=== PATIENT | male | born 1960 | race Caucasian/White ===

== ENCOUNTER 2016-10-03 09:30 | Emergency (ER) | payer OTHER ==
[2016-09-05 21:54] VITALS: BMI 32.8
[~2016-10-03 09:30] MED LIST: ALPHA LIPOIC ACID PO; BEPREVE10 ML EACH EYE; COZAAR100 MG PO; CYMBALTA30 MG; CYMBALTA30 MG PO; EFFIENT10 MG PO; MOBIC7.5 MG PO; NEURONTIN 300300 MG PO; NORVASC5 MG PO; PLAVIX75 MG PO; SIMBRINZA 1%-0.28 ML EACH EYE; TANZEUM50 MG/0.5 SC; VITAMIN B COMPL1 TAB PO; VITAMIN D5000 UNIT PO; [UNRECOGNIZED DRUG - OTHER] PO
[2016-10-03 10:17] LABS: BASOPHILS 0.9 % (0.0-2.0); EOSINOPHILS 2.3 % (0-7); HEMATOCRIT 49.7 % (42.0-54.0); IMMATURE GRANULOCYTES 0.2 % (0-5); LYMPHOCYTES 25.6 % (15-50); MCHC 34.2 g/dL (31.0-37.0); MCV 87.8 fL (80.0-100.0); MEAN PLATELET VOLUME 10.3 fL (7.4-10.4); MONOCYTES 5.6 % (2-11); NEUTROPHILS 65.4 % (40-80); PLATELET COUNT 228 10x3/uL (130-400); RBC 5.66 10x6/uL (4.20-6.10); RDW 12.8 % (11.5-14.5); WBC 8.2 10x3/uL (4.8-10.8)
[2016-10-03 10:40] LABS: ALBUMIN 4.2 g/dL (3.4-5.0); ALKALINE PHOSPHATASE 105 U/L (46-116); ALT (SGPT) 44 U/L (10-68); BILIRUBIN - TOTAL 0.65 mg/dL (0.2-1.3); CALC OSMOLALITY 281 mosm/kg (275-300); CALCIUM 9.1 mg/dL (8.5-10.1); CHLORIDE - SERUM 99 mmol/L (98-107); CREATININE - SERUM 0.9 mg/dL (0.6-1.3); GLUCOSE 291 mg/dL (74-106); POTASSIUM - SERUM 4.1 mmol/L (3.5-5.1); PROTEIN - SERUM 7.8 g/dL (6.4-8.2); SODIUM 134 mmol/L (136-145); UREA NITROGEN 21 mg/dL (7-18); eGFR NON AFRICAN AMERICAN > 90 mL/min (90-120)
[2016-10-03 10:51] LABS: CHOL - HDL RATIO 5.8 ratio (2.3-4.9); CHOLESTEROL, TOTAL 198 mg/dL (0-200); CKMB 2.8 U/L (0.0-3.6); CREATINE KINASE 205 UL (21-232); HDL CHOLESTEROL 34 mg/dL (32-96); TRIGLYCERIDE 409 mg/dL (30-200); TROPONIN-I 0.027 ng/mL (0.000-0.060)
== END 2016-10-03 13:14 | disposition home or self-care (01) ==
LOC: D.ER 09:30
PROVIDERS: Emergency Medicine
DX: R07.9 Chest pain, unspecified (principal); I25.10 Atherosclerotic heart disease of native coronary artery without angina pectoris; R00.0 Tachycardia, unspecified; I45.10 Unspecified right bundle-branch block

== ENCOUNTER → 2016-12-24 08:00 | Outpatient (CLI) | payer OTHER ==
[2016-09-05 21:54] VITALS: BMI 32.8
--- NOTE | ~2016-12-24 | EMG ---
PATIENT:VIANNEY SHABAZZ DATE OF SERVICE: 12/24/16 MEDICAL RECORD: [id number] DATE OF : 56 LOCATION: [facility] ADMISSION DATE: REFERRING PHYSICIAN: JERSEY CELESTIN MD INTERPRETING PHYSICIAN: JERSEY CELESTIN MD DATE OF SERVICE: 12/24/2016 Electromyographic Report Referred by myself as an outpatient. DATE OF EXAMINATION: 12/24/2016. ELECTROMYOGRAPHIC DATA: Electromyographic examination is limited to both upper extremities and is limited to the nerve conduction studies only as the patient is currently on blood thinning medication that poses a risk for needle electrode examination. In the right upper extremity, right median motor stimulation elicits a compound motor action potential with a distal latency of 3.3 milliseconds, peak amplitude of 3 millivolts, and calculated conduction velocity of 42 meters per second. Right ulnar motor stimulation elicits a compound motor action potential with a distal latency of 3.5 milliseconds, peak amplitude of 6 millivolts, and calculated conduction velocity of 52 meters per second. Right ulnar motor stimulation across the elbow fails to elicit evidence of conduction block at this level. Antidromic right median sensory stimulation elicits a response with a distal latency of 4.1 milliseconds, amplitude of 3 microvolts and calculated conduction velocity of 42 meters per second. Antidromic right ulnar sensory stimulation elicits a response with distal latency of 3.8 milliseconds, amplitude of 4 microvolts and calculated conduction velocity of 38 meters per second. The right median F wave has a latency of 35 milliseconds. In the left upper extremity, left median motor stimulation elicits a compound motor action potential with a distal latency of 3.2 milliseconds, peak amplitude of 4 millivolts, and calculated conduction velocity of 46 meters per second. Left ulnar motor stimulation elicits a compound motor action potential with a distal latency of 3.1 milliseconds, peak amplitude of 6 millivolts, and calculated conduction velocity of 49 meters per second. Left ulnar motor stimulation across the elbow fails to elicit evidence of conduction block at this level. Antidromic left median sensory stimulation elicits a response with a distal latency of 3.4 milliseconds, amplitude of 5 microvolts and calculated conduction velocity of 42 meters per second. Antidromic left ulnar sensory stimulation elicits a response with a distal latency of 3.6 milliseconds, amplitude of 7 microvolts and calculated conduction velocity of 43 meters per second. The left median F wave has a latency of 37 milliseconds. Needle electrode examination is not performed at this time due to an appointment therapy. INTERPRETATION: Electromyographic examination of both upper extremities is indicative of median neuropathy, at or distal to the wrist on the right, mild in degree electrically, consistent with the diagnosis of right carpal tunnel syndrome. There is no electrical evidence of a superimposed cervical radiculopathy or other lesion of the lower motor neuron in the upper extremities ELECTROMYGRAM/NERVE CONDUCTION [id number] VIANNEY SHABAZZ at this time. TRANSINT:[id number] Voice Confirmation ID: [id number] DOCUMENT ID: [id number] JERSEY CELESTIN MD CC: [id number] DICTATION DATE: 12/25/16717 DATA ENTRY ASSISTANT: 12/25/16 1212 DEP CLI 12/24/16 [id number] [place] [address]
[2016-12-24 10:21] LABS: ALBUMIN 3.7 g/dL (3.4-5.0); ALKALINE PHOSPHATASE 110 U/L (46-116); ALT (SGPT) 47 U/L (10-68); BILIRUBIN - TOTAL 0.43 mg/dL (0.2-1.3); CALC OSMOLALITY 289 mosm/kg (275-300); CALCIUM 8.7 mg/dL (8.5-10.1); CARBON DIOXIDE 23.2 mmol/L (21.0-32.0); CHLORIDE - SERUM 105 mmol/L (98-107); GLUCOSE 287 mg/dL (74-106); POTASSIUM - SERUM 4.1 mmol/L (3.5-5.1); PROTEIN - SERUM 7.1 g/dL (6.4-8.2); SODIUM 140 mmol/L (136-145); UREA NITROGEN 14 mg/dL (7-18); eGFR NON AFRICAN AMERICAN 81 mL/min (90-120)
[2016-12-24 11:12] LABS: ERYTHROCYTE SEDIMENTATION RATE 8 mm/hr (0-20)
[2016-12-26 12:08] LABS: ANA REFLEX - DIRECT Negative (Negative)
== END | disposition home or self-care (01) ==
LOC: D.CN 08:00
PROVIDERS: Psychiatry & Neurology Neurology
DX: M06.9 Rheumatoid arthritis, unspecified (principal); G56.00 Carpal tunnel syndrome, unspecified upper limb; G60.9 Hereditary and idiopathic neuropathy, unspecified; E11.40 Type 2 diabetes mellitus with diabetic neuropathy, unspecified

== ENCOUNTER → 2017-05-09 19:30 | Outpatient (CLI) | payer OTHER ==
[2016-09-05 21:54] VITALS: BMI 32.8
== END | disposition home or self-care (01) ==
LOC: D.SLEEP 19:30
DX: G47.33 Obstructive sleep apnea (adult) (pediatric) (principal)

== ENCOUNTER → 2017-06-23 11:27 | Outpatient (CLI) | payer OTHER ==
[2016-09-05 21:54] VITALS: BMI 32.8
== END | disposition home or self-care (01) ==
LOC: D.CT 11:27
DX: R10.84 Generalized abdominal pain (principal)